=== PATIENT | male | born 1935 | race Caucasian/White ===

== ENCOUNTER → 2016-06-26 | Outpatient (CLI) | payer OTHER ==
[~2016-06-26] MED LIST: IOPAMIDOL (ISOVUE 370) 100 ML BTL IV ONE
[2016-06-26 11:15] LABS: CREATININE 1.1 mg/dL (0.7-1.3); GLOMERULAR FILTRATION RATE > 60
== END ==
LOC: FIMAGING 10:23
PROVIDERS: ATTEND Family Medicine
DX: M54.9 Dorsalgia, unspecified (principal)
CPT/HCPCS: 74175; Q9967

== ENCOUNTER 2018-02-28 18:45 | Emergency (ER) | payer OTHER ==
[2018-02-28 19:03] VITALS: BP 144/76
[2018-02-28] MEDS ORDERED: SILVER NITRATE APPLICATOR 1 APPL TP ONE (19:13)
--- NOTE | 2018-02-28 19:40 | EDPHY ---
H & P Time Seen by Provider: 02/28/18 18:51 HPI/ROS: CHIEF COMPLAINT: Facial bleeding HISTORY OF PRESENT ILLNESS: Patient states he is unable to get the bleeding on his chin stop. He is on INR and has been for 15 years. Approximately 3 weeks ago he had his INR checked and it was a little bit low. He states they"doubled "his dose and he is due to have it recheck next week. He states he has a small area on his chin that will bleed occasionally when his INR is elevated but it usually is stopped with direct pressure. Today he states it has been bleeding off and on all day and direct pressure does not seem to be helping. No other complaints. REVIEW OF SYSTEMS: Negative except per HPI. General Appearance: Alert, no distress. Eyes: Pupils equal and round no icterus Respiratory: No respiratory distress Neurological: Awake, alert, no focal deficits. Skin: Warm and dry, no rashes. Small vessel at surface of the skin on the right chin visible without any active bleeding. Musculoskeletal: Neck is supple nontender. Extremities are symmetrical, full range of motion, no edema. Psychiatric: Patient is oriented X 3, there is no agitation. Medical/surgical history: Renal insufficiency, diabetes, gout, hypertension. Cardiac stents x5. Aortic repair. Pacer placement. Social history: Nonsmoker. Smoking Status: Former smoker Constitutional: Initial Vital Signs Temperature (C) 36.5 C 02/28/18 18:58 Heart Rate 98 02/28/18 18:58 Respiratory Rate 14 02/28/18 18:58 Blood Pressure 144/76 H 02/28/18 18:58 O2 Sat (%) 98 02/28/18 18:58 O2 Delivery Mode Room Air Allergies/Adverse Reactions: No Known Allergies Allergy (Verified 02/28/18 18:56) Home Medications: Medication Instructions Recorded metFORMIN HCL [Glucophage 500 mg 500 mg PO BID 09/28/10 (*)] Lovastatin 40 mg PO HS 02/13/12 Clopidogrel 75 mg PO DAILY 12/08/14 Coumadin 5MG (*) 09/29/15 Coumadin 7.5MG (*) 09/29/15 Metoprolol Tartrate 50 mg PO HS 09/29/15 Allopurinol 02/28/18 Medical Decision Making Differential Diagnosis: Differential diagnosis includes supratherapeutic INR, laceration, other wound. After evaluation patient with mildly elevated INR of 3.3. Will have him hold his Coumadin tonight and recheck with INR clinic tomorrow. Bleeding had stopped by the time of my exam. Patient understands follow-up and return precautions. Departure - Departure Clinical Impression: Bleeding on Coumadin Condition: Good Instructions: Warfarin (By mouth) Additional Instructions: Your INR was 3.3 today. Hold Coumadin dose tonight and contact the INR clinic tomorrow for further adjustments as needed. If you developed bleeding apply direct pressure with firm pressure for 10-15 minutes. If he cannot get bleeding stopped you are welcome to return to the emergency department. Referrals: BEN COBOS [Primary Care Provider] - As per Instructions
== END 2018-02-28 19:48 | disposition home or self-care (01) ==
LOC: CED 18:45
DX: D68.32 Hemorrhagic disorder due to extrinsic circulating anticoagulants (principal); T45.515A Adverse effect of anticoagulants, initial encounter; I48.91 Unspecified atrial fibrillation; E11.9 Type 2 diabetes mellitus without complications; M10.9 Gout, unspecified; I10 Essential (primary) hypertension; I25.10 Atherosclerotic heart disease of native coronary artery without angina pectoris; Z79.01 Long term (current) use of anticoagulants; Z87.891 Personal history of nicotine dependence; Z95.5 Presence of coronary angioplasty implant and graft; Z95.0 Presence of cardiac pacemaker